=== PATIENT | female | born 1990 | race African-American/Black ===

== ENCOUNTER 2019-11-17 08:11 | Outpatient (CLI) | payer OTHER ==
--- NOTE | 2019-11-17 09:43 | Ultrasound Report ---
PROCEDURE: Abdomen Complete INDICATIONS: IRRITABLE BOWEL SYNDROME TECHNIQUE: Real-time scanning was performed of the abdominal and retroperitoneal organs, with image documentatio n. COMPARISON: None. FINDINGS: Liver: Liver is normal in size and homogeneous in echotexture. Gallbladder: Gallbladder wall thickness is within normal limits measuring 2 mm. No stones are identif ied. Biliary ducts: Intrahepatic bile ducts are non-dilated. Extrahepatic bile duct caliber measures 3 m m. Normal is 6-7 mm or less in diameter, or 10 mm or less post-cholecystectomy. Pancreas: Visualized portions of the pancreas are sonographically normal. Spleen: Spleen is normal in size and homogeneous in echotexture. Kidneys: Kidneys are normal in size and echotexture. Right kidney measures 10.5 cm long; left kidne y measures 10.2 cm long. No hydronephrosis. Bilateral nonobstructing calcifications are present with the largest on the left measuring 7 x 5 x 7 mm. Aorta: Visualized aorta is normal in caliber at less than 3 cm. Iliacs: Proximal common iliac arteries are normal in caliber at less than 2.5 cm. IVC: Intrahepatic inferior vena cava is patent. Miscellaneous: No free abdominal fluid. IMPRESSION: 1. Subcentimeter bilateral nonobstructing renal calculi. Otherwise, unremarkable exam. Reviewed by: Altagracia Cote MD on 11/17/2019 9:41 AM PDT Approved by: Altagracia Cote MD on 11/17/2019 9:41 AM PDT Station ID: [id number]
== END 2019-11-17 08:12 | disposition home or self-care (01) ==
LOC: DI 08:11
PROVIDERS: ATTEND Internal Medicine
DX: K58.8 Other irritable bowel syndrome (principal); N20.0 Calculus of kidney
CPT/HCPCS: 76700

== ENCOUNTER 2019-11-25 11:29 | Outpatient (CLI) | payer OTHER ==
--- NOTE | 2019-11-26 07:48 | Ultrasound Report ---
LIMITED ULTRASOUND OF RIGHT BREAST: 11/25/2019 CLINICAL: Palpable right breast lump. No prior exams were available for comparison. Real-time ultrasound of the right breast 10 o'clock region was performed. Shields scale images of the r eal-time examination were reviewed. No significant abnormalities were seen sonographically in the right breast. IMPRESSION: BENIGN There is no sonographic evidence of malignancy. There is no abnormality seen in the right breast to correspond with the area of clinical concern and palpable abnormality in the upper outer quadrant which likely represent normal fibroglandular tissue, however, recommend clinical followup for persistent or worsening symptoms and/or development of any clinically suspicious findings. Findings and recommendations were conveyed to the patient during today's visit. This exam was interpreted at Station ID: [id number]. Electronically Signed By: Rufus Calvillo M.D. aty/:11/25/2019 13:37:23 Ultrasound BI-RADS: 2 Benign BI-RADS CATEGORY: (2) - 2 Unspecified - other recall n/a LATERALITY: (B)
== END 2019-11-25 11:30 | disposition home or self-care (01) ==
LOC: DI 11:29
PROVIDERS: ATTEND Advanced Practice Midwife
DX: Z00.00 Encounter for general adult medical examination without abnormal findings (principal); N63.10 Unspecified lump in the right breast, unspecified quadrant; R21 Rash and other nonspecific skin eruption
CPT/HCPCS: 76642

== ENCOUNTER 2021-03-22 15:00 | Inpatient (IN) | payer OTHER ==
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
[2021-03-22 16:37] LABS: RUPTURE OF MEMBRANES PLUS POSITIVE (NEGATIVE)
[2021-03-22] MEDS ORDERED: LIDOCAINE-MPF 1% 30 ML VIAL ID PRN (17:10)
[2021-03-22] MEDS ORDERED: METOCLOPRAMIDE 10 MG/2 ML VIAL IVP PRN ×2 (17:10→19:43)
[2021-03-22] MEDS ORDERED: METHYLERGONOVINE 0.2 MG/ML VIAL IM PRN (17:10)
[2021-03-22] MEDS ORDERED: TRANEXAMIC ACID IN NACL 1,000 MG/100 ML BAG IV PRN (17:10)
[2021-03-22] MEDS ORDERED: LABETALOL 20 MG/4 ML SYRINGE IVP PRN (17:10)
[2021-03-22] MEDS ORDERED: OXYTOCIN 10 UNIT/ML VIAL IM PRN (17:10)
[2021-03-22] MEDS ORDERED: hydrALAZINE INJ 20 MG/ML VIAL IVP PRN (17:10)
[2021-03-22] MEDS ORDERED: SODIUM CHLORIDE FLUSH 0.9% 10 ML SYRINGE IVP PRN (17:10)
[2021-03-22] MEDS ORDERED: miSOPROStoL 200 MCG TABLET BC PRN (17:10)
[2021-03-22] MEDS ORDERED: CARBOPROST TROMETHAMINE 250 MCG/ML AMP IM PRN (17:10)
[2021-03-22] MEDS ORDERED: ONDANSETRON 4 MG/2 ML VIAL IVP PRN ×2 (17:10→19:43)
[2021-03-22] MEDS ORDERED: fentaNYL 100 MCG/2 ML VIAL IVP PRN (17:10)
[2021-03-22] MEDS ORDERED: OXYTOCIN/SODIUM CHLORIDE 500 ML IV PRN (17:10)
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
[2021-03-22 17:55] LABS: BASOPHILS % (AUTO) 0.3 %; EOSINOPHILS # (AUTO) 0.1 10^3/uL (0.0-0.7); EOSINOPHILS % (AUTO) 0.6 %; HCT - HEMATOCRIT 38.1 % (37.0-47.0); HGB - HEMOGLOBIN 12.6 g/dL (12.0-16.0); LYMPHOCYTES % (AUTO) 17.7 %; MEAN CORPUSCULAR HEMOGLOBIN 28.1 pg (27.0-31.0); MEAN CORPUSCULAR HGB CONC 33.1 g/dL (32.0-36.0); MEAN CORPUSCULAR VOLUME 84.9 fL (81.0-99.0); MEAN PLATELET VOLUME 11.3 fL (7.9-10.8); MONOCYTES # (AUTO) 0.9 10^3/uL (0.0-1.0); MONOCYTES % (AUTO) 7.5 %; NEUTROPHILS # (AUTO) 8.4 10^3/uL (1.5-6.6); NEUTROPHILS % (AUTO) 73.6 %; PLT - PLATELET COUNT 250 10^3/uL (130-450); RED BLOOD COUNT 4.49 10^6/uL (4.20-5.40); WHITE BLOOD COUNT 11.4 x10^3/uL (4.8-10.8)
[2021-03-22] MEDS: LACTATED RINGERS 1,000 ML IV SCH ×2 (18:40→20:43)
[2021-03-22] MEDS ORDERED: BUPIVACAINE 0.25% PF 10 ML VIAL ONE (18:59)
[2021-03-22] MEDS ORDERED: ROPIVACAINE 0.2% 200 MG/100 ML BAG EP ONE (18:59)
[2021-03-22] MEDS ORDERED: fentaNYL 100 MCG/2 ML VIAL ONE (18:59)
[2021-03-22] MEDS ORDERED: NALOXONE 0.4 MG/ML VIAL IVP PRN (19:43)
[2021-03-22] MEDS ORDERED: ROPIVACAINE 0.2% 200 MG/100 ML BAG EP PRN (19:43)
[2021-03-22] MEDS ORDERED: NALBUPHINE 10 MG/ML AMP IVP PRN (19:43)
[2021-03-22] MEDS ORDERED: ePHEDrine 50 MG/ML VIAL IVP PRN (19:43)
--- NOTE | 2021-03-22 19:45 | ANESTHESIA ---
Pre-Anesthesia VS, & Labs - Diagnosis active labor - Procedure labor epidural Vital Signs: Temp Pulse Resp BP Pulse Ox 36.8 C 89 16 107/66 100 03/22/21 17:30 03/22/21 17:30 03/22/21 17:30 03/22/21 17:30 03/22/21 16:23 Height: 5 ft Weight (kg): 68.946 kg Body Mass Index: 29.7 BMI Classification: Overweight - Is Patient ?: Yes - Lab Results Current Lab Results: Laboratory Tests 03/22/21 17:21: Blood Type A POSITIVE, Antibody Screen NEGATIVE 03/22/21 17:21: WBC 11.4 H, RBC 4.49, Hgb 12.6, Hct 38.1, MCV 84.9, MCH 28.1, MCHC 33.1, RDW 15.0, Plt Count 250, MPV 11.3 H, Neut # (Auto) 8.4 H, Lymph # (Auto) 2.0, [place] # (Auto) 0.9, Eos # (Auto) 0.1, Baso # (Auto) 0.0, Absolute Nucleated RBC 0.00, Nucleated RBC % 0.0 Lab results reviewed: Yes Fish Bones: 03/22/21 17:21 Home Medications and Allergies Active Medications Acetaminophen (Acetaminophen 325 Mg Tablet) 650 mg PO Q6H JAYA Carboprost Tromethamine (Carboprost Tromethamine 250 Mcg/Ml Amp) 250 mcg IM Q15M PRN PRN Reason: Step 4: Hemorrhage protocol Stop: 03/27/21 17:11 Fentanyl (Fentanyl 100 Mcg/2 Ml Vial) 50 mcg IVP Q1H PRN PRN Reason: PAIN Hydralazine HCl (Hydralazine Inj 20 Mg/Ml Vial) 10 mg IVP .ONCE PRN; Protocol PRN Reason: Step 9 of Labetalol protocol Stop: 03/27/21 17:14 Lactated Ringer's (Lr) 1,000 mls @ 150 mls/hr IV .Q6H40M JAYA Last Admin: 03/22/21 18:40 Dose: 500 mls/hr Documented by: Oxytocin/Sodium Chloride (Pitocin/Sodium Chloride) 500 mls @ 999 mls/hr IV PRN PRN; Protocol PRN Reason: POST- HEMORR PREVENTION Stop: 03/27/21 17:11 Tranexamic Acid (Tranexamic 1,000 Mg/100ml-Nacl) 1,000 mg in 100 mls @ 600 mls/hr IV .ONCE PRN PRN Reason: EBL >1200mL and within 3hr Stop: 03/27/21 17:11 Oxytocin/Sodium Chloride (Pitocin/Sodium Chloride) 500 mls @ 1 mls/hr IV TITR JAYA; Protocol Labetalol HCl (Labetalol 20 Mg/4 Ml Syringe) 20 - 80 mg IVP Q10M PRN; Protocol PRN Reason: SBP >160 or DBP >110 Lidocaine HCl (Lidocaine-Mpf 1% 30 Ml Vial) 30 ml ID .ONCE PRN PRN Reason: PERINEAL REPAIR Stop: 03/27/21 17:11 Methylergonovine Maleate (Methylergonovine 0.2 Mg/Ml Vial) 0.2 mg IM .ONCE PRN PRN Reason: Step 2: Hemorrhage protocol Stop: 03/27/21 17:11 Metoclopramide HCl (Metoclopramide 10 Mg/2 Ml Vial) 10 mg IVP Q6H PRN PRN Reason: Nausea / Vomiting Misoprostol (Misoprostol 200 Mcg Tablet) 800 mcg BC .ONCE PRN PRN Reason: Step 3: Hemorrhage protocol Stop: 03/27/21 17:11 Ondansetron HCl (Ondansetron 4 Mg/2 Ml Vial) 4 mg IVP Q4H PRN PRN Reason: Nausea / Vomiting Oxytocin (Oxytocin 10 Unit/Ml Vial) 10 unit IM .ONCE PRN PRN Reason: Step one: If no IV access Stop: 03/27/21 17:11 Sodium Chloride (Sodium Chloride Flush 0.9% 10 Ml Syringe) 10 ml IVP PRN PRN PRN Reason: NEEDED PER PROVIDER ORDERS Sodium Chloride (Sodium Chloride Flush 0.9% 10 Ml Syringe) 10 ml IVP 0100,0900,1700 [facility] Allergies/Adverse Reactions: Allergies Allergy/AdvReac Type Severity Reaction Status Date / Time No Known Drug Allergies Allergy Verified 03/22/21 16:06 Anes History & Medical History - Anesthetic History Anesthesia Complications: reports: No previous complications Family history of Anesthesia Complications: Denies Family history of Malignant Hyperthermia: Denies - Medical History Neuro: reports: Other (low back pain) Smoking Status: Never smoker - Obstetrical History : 1 Parity: 0 Events: reports: Gestational diabetes Complications: reports: None Exam General: Alert, Oriented x3, Cooperative, No acute distress Dental: WNL Mouth Openin Fingerbreadth Plan Anesthesia Type: Epidural Consent for Procedure(s) Verified and Reviewed: Yes Code Status: Attempt Resuscitation ASA classification: 2-Mild systemic disease Is this case an emergency?: No
[2021-03-22 20:16] LABS: MUDS CUTOFF CONCENTRATIONS CUTOFF CONC BELOW:
--- NOTE | 2021-03-22 20:20 | PROVIDER PROGRESS NOTE ---
Labor Progress Note - Uterine Monitoring Contraction Intensity: positive: Mild to moderate Uterine Resting Tone: positive: Soft - Monitoring Monitor Mode: positive: Spiral electrode Heart Rate Variability: positive: Moderate (6-25 bmp) Accelerations: positive: Present, 15x15 Strip Review: positive: Category I, Category II - Vaginal Exam Dilation (in cm): 4 Effacement (%): 80-90 Station: -3 (Patient had a variabile deceleration, then the fetus was off the monitor. Patient had a lito late after FSE placed. Moderate variabilityis present throughout the strip.) - Labor Progress Note Labor Progress Note/Additional Text: Patient uis very comfortable with epidural. heart tones came off external monitor and could not be heard for 30 seconds. Exam performed, 4cm/80-90/-3, forebag present. [place] utilized to rupture forebag. Clear fluid present. FSE placed. Bedside ultrasound performed. Vertex in the OP/OT position. Patient states she is tired and she is comfortable. Sanchez placed to drainage. Patient to rest and them begin Pitocin augmentation of labor. Continuous monitoring.
[2021-03-22 20:27] LABS: AMPHETAMINE SCREEN,URINE NEGATIVE (NEGATIVE); BARBITURATE SCREEN,UR NEGATIVE (NEGATIVE); BENZODIAZEPINES SCREEN, URINE NEGATIVE (NEGATIVE); COCAINE SCREEN URINE NEGATIVE (NEGATIVE); METHADONE SCREEN, URINE NEGATIVE (NEGATIVE); METHAMPHETAMINES SCREEN, URINE NEGATIVE (NEGATIVE); OPIATE SCREEN, URINE NEGATIVE (NEGATIVE); OXYCODONE SCREEN, URINE NEGATIVE (NEGATIVE); PROPOXYPHENE SCREEN, URINE NEGATIVE (NEGATIVE); THC CANNABINOID SCREEN, URINE NEGATIVE (NEGATIVE); TRICYCLIC ANTIDEPRESSANT,URINE NEGATIVE (NEGATIVE)
[2021-03-22] MEDS: OXYTOCIN/SODIUM CHLORIDE 500 ML IV SCH (21:25)
[2021-03-23] MEDS: LACTATED RINGERS 1,000 ML IV SCH ×3 (03:34→17:43)
[2021-03-23] MEDS: ACETAMINOPHEN 325 MG TABLET PO SCH ×6 (04:34→21:00)
[2021-03-23] MEDS ORDERED: BUPIVACAINE 0.25% PF 10 ML VIAL ONE (04:55)
[2021-03-23] MEDS ORDERED: fentaNYL 100 MCG/2 ML VIAL ONE (04:55)
[2021-03-23] MEDS: diphenhydrAMINE INJ 50 MG/ML VIAL IVP PRN ×2 (06:59→14:40)
--- NOTE | 2021-03-23 10:11 | PROVIDER PROGRESS NOTE ---
Labor Progress Note - Uterine Monitoring Contraction Frequency (min/apart): 3-5 minutes Contraction Intensity: positive: Moderate Uterine Resting Tone: positive: Soft - Monitoring Monitor Mode: positive: Spiral electrode Heart Rate Baseline: 140 Heart Rate Variability: positive: Moderate (6-25 bmp) Accelerations: positive: Present, 15x15 Decelerations: positive: Variable, Intermittent (<50% x20 min) Strip Review: positive: Category I (Occasionally has Category II strip, occasional minimal variability, mostly moderate variability. Accelerations are present. Occasional variable.) - Vaginal Exam Dilation (in cm): Copmplete Station: 2 (Patient has been pushing, somewhat ineffectively, for 3 hours,) - Labor Progress Note Labor Progress Note/Additional Text: Patient has been pushing mostly ineffectively for 3 hours. The first hour there was not directed pushing with RN. Patient has been complaining about pain in her shoulder and neck and this prevents her from maintaining effective pushing. Discussed with patient and the need for a brake. Consulted with Anesthesia about maintaining pain control but becoming more effective with pushing. Discussed giving her Fentanyl for her neck and shoulder pain. Patient can feel our fingers when we examine her and place them in the vagina. Exam: Head is 2+ station. Two fingers can be placed between the infants head and the pubic bone. There is a lot of room in the posterior vagina for the head. Pelvis appears adequate for delivery. Discussed utilizing the vacuum to assist in the delivery of the head. Explained that it can only be utilized with 4 contractions and it would be preferred if the head descends a little more. Take a break for an hour and attempt to get pain control of her neck and shoulders. Anesthesia consulted and is staying available to assist us.
--- NOTE | 2021-03-23 13:04 | DELIVERY NOTE ---
Delivery Note - Labor Labor: positive: Augmented by oxytocin - Delivery Method Delivery Method: positive: Vacuum assist - Presentation Presentation: positive: Vertex, VIBHA - right occiput anterior - Nuchal Cord Nuchal Cord: positive: None - Anesthetic Anesthetic Type: - Amniotic Fluid Description Amniotic Fluid Description: positive: Light meconium - Vacuum Use Indication for Vacuum Use: positive: Prolonged 2nd stage, Shortening of 2nd stage for maternal benefit Type of Vacuum Cup: positive: Cup: Mushroom Type Vacuum Extraction: positive: Successful - Episiotomy Type Episiotomy Type: positive: Midline - Laceration Laceration: positive: Vaginal - Suture Suture Type: positive: Vicryl Suture Size: positive: 2-0 - Delivery Outcome Delivery Outcome: positive: Livebirth - [place]: positive: Placed in direct skin contact with mother [place] sex: positive: Male - Cord Cord: positive: 3 vessels - Placenta Placenta: positive: Intact, Spontaneous - Estimated Blood Loss Estimated Blood Loss (in cc): 600 (Patient sustained vaginal, periurethral lacerations that bled significantly when vacuum was placed. 2-0 Vicryl in interrupted fashion utilized times 5 sutures to obtain hemostasis prior to attempting vacuum assisted vaginal delivery.) - Delivery Comments (Free Text/Narrative) Delivery Comments (Free Text/Narrative): 30 yo at 39 1/7 presented with "bloody show" and having irregular co ntractions. Patient had SROM test performed and while test was being performed, SROM was witnessed by FERNANDEZ Jin. Test was positive and patient was admitted at 3/80/-3 and solo every 4-6 minutes. 3 hours later RN attempted to check patient and patient could not tolerate exam. Epidural anesthesia was placed. Patient was then 4cn/90%/-3. There were 2 variables that occurred and forebag was present and AROM was performed of forebag. Clear fluid was present. Patient was started on Pitocin Augmentation of labor. Patient progressed to 8.5 cm and was -1 station. One and a half hours later she was writing in pain, complete and plus two. Anesthesia came and re-adjusted her epidural. Patient pushed for 3 hours and the head was 2+ to 3+, not , but very close. Patient was feeling a little pressure in the vagina, but washaving tremendous pain in her neck and shoulders and was not able to push effectively. It was decided to give her a break. Anesthesia recommended 50mcg of Fentanyl which was given. Patient had about an hour break. Dr. Rangel was present due to Meconium and plan to utilize vacuum with the delivery after the break. Patient had had been verbally consented about use of vacuum. They agreed to try it. Patient was placed at end of table and the bottom was removed. Kiwi vacuum was placed in vagina and it caused a superficial laceration to periurethral area. It caused significant bleeding and 2-0 Vicryl in interrupted fashion times 5 was placed to stop bleeding. Her tissue was edematous and easily lacerated. Patient sustained a left vaginal/introitus laceration just inside vulva prior to delivery. 2 interrupted 2-0 Vicryl sutures placed to obtain hemostais. Patient's bladder was drained of 75cc of dark urine. With the next contraction the vacuum was utilized. Progress occurred with each contraction. Vacuum was utilized with 5 contractions. 2 Pop-offs occurred. Patient pushed on her own for 2-3 contractions and the head was protruding from the introitus. Vacuum applied with minimal pressure ( in yellow) to assist with the last effort of delivery of head. A midline Episiotomy was performed prior to the last contraction and vacuum application. Head delivered in VIBHA position. Maternal forces delivered anterior shoulder under pubic bone. Remainder of infant delivered spontaneously. Living male with copious light meconium and small amount of terminal meconium and APGARS of 9/9/ Cord clamped times two and cut. Cord blood obtained. Pitocin started in IV. Placenta delivered spontaneously, Intact, FRANNY. Dr. Crockett came in room shortly after delivery. 2-0 Vicryl in 2 layer running fashion was utilized to repair episiotomy. Interrupted suture of 2-0 Vicryl times 4 was utilized to obtain good appro ximation and hemostais of vaginal mucosa and skin on perineum. Due to swelling in periurethral area a roman was placed to drainage. Lap, sponge, needle and instrument counts were correct. EBL is 600cc, most of which occurred prior to delivery with vaginal lacerations. Patient and are resting in stable condition.
[2021-03-23] MEDS: IBUPROFEN 600 MG TABLET PO SCH ×3 (13:20→19:50)
[2021-03-23] MEDS ORDERED: WITCH HAZEL/GLYCERIN 1 PAD TOP PRN (13:45)
[2021-03-23] MEDS ORDERED: diphenhydrAMINE 25 MG CAPSULE PO PRN (13:45)
[2021-03-23] MEDS ORDERED: HYDROCORTISONE 1% CREAM 28 GM TUBE PR PRN (13:45)
[2021-03-23] MEDS ORDERED: oxyCODONE 5 MG TABLET PO PRN (13:45)
[2021-03-23] MEDS: SODIUM CHLORIDE FLUSH 0.9% 10 ML SYRINGE IVP SCH ×3 (14:45→17:44)
[2021-03-23] MEDS: DOCUSATE SODIUM 100 MG CAPSULE PO SCH ×2 (17:38→21:01)
[2021-03-23] MEDS: OXYTOCIN/SODIUM CHLORIDE 500 ML IV SCH (17:53)
[2021-03-24] MEDS: IBUPROFEN 600 MG TABLET PO SCH ×3 (05:41→18:51)
[2021-03-24] MEDS: ACETAMINOPHEN 325 MG TABLET PO SCH ×3 (05:41→18:51)
[2021-03-24 07:37] LABS: HGB - HEMOGLOBIN 8.9 g/dL (12.0-16.0); RED CELL DISTRIBUTION WIDTH 15.4 % (12.0-15.0)
[2021-03-24 07:42] LABS: BASOPHILS % (AUTO) 0.6 %; HCT - HEMATOCRIT 26.8 % (37.0-47.0); LYMPHOCYTES % (AUTO) 17.7 %; MEAN CORPUSCULAR HEMOGLOBIN 28.7 pg (27.0-31.0); MEAN CORPUSCULAR HGB CONC 33.2 g/dL (32.0-36.0); MEAN CORPUSCULAR VOLUME 86.5 fL (81.0-99.0); MEAN PLATELET VOLUME 11.2 fL (7.9-10.8); MONOCYTES % (AUTO) 7.6 %; NEUTROPHILS % (AUTO) 72.7 %; PLT - PLATELET COUNT 179 10^3/uL (130-450); WHITE BLOOD COUNT 15.4 x10^3/uL (4.8-10.8)
[2021-03-24 07:44] LABS: ABNORMAL LYMPHS % (MANUAL) 0 %
[2021-03-24 08:18] LABS: BAND NEUTROPHILS % (MANUAL) 3 %; EOSINOPHILS # (MANUAL) 0.3 10^3/uL (0-0.7); LYMPHOCYTES # (MANUAL) 2.6 10^3/uL (1.5-3.5); LYMPHOCYTES % (MANUAL) 17 %; MONOCYTES # (MANUAL) 1.4 10^3/uL (0.0-1.0); NEUTROPHILS # (MANUAL) 11.1 10^3/uL (1.5-6.6)
[2021-03-24 08:19] LABS: DIFFERENTIAL COMMENT MANUAL DIFFERENTIAL; PLATELET ESTIMATE, MANUAL NORMAL (130-450,000) (NORMAL); PLATELET MORPHOLOGY NORMAL APPEARANCE (NORMAL); RBC MORPHOLOGY (MULTIPLE) NORMAL APPEARANCE (NORMAL); WBC MORPHOLOGY (MULTIPLE) 1+ TOXIC GRANULATION (NORMAL)
[2021-03-24] MEDS: DOCUSATE SODIUM 100 MG CAPSULE PO SCH (12:45)
--- NOTE | 2021-03-24 14:30 | PROVIDER PROGRESS NOTE ---
Subjective - Prog Note Date Prog Note Date: 03/24/21 Prog Note Time: 14:28 - Subjective Pt reports feeling: Improved Subjective: Patient is 30yo who is day 1 Vacuum assisted vaginal delivery. Patient is feeling really good today. Patient had roman stay in overnight due to swelling in her periurethral area. Roman has been removed. Patient states pain is well controlled. Patient is breast feeding. Patient has ambulated. O- VSS, afebrile. Objective - Vital Signs/Intake & Output Reviewed Vital Signs: Yes Intake & Output: Intake & Output 03/21/21 03/22/21 03/23/21 03/24/21 23:59 23:59 23:59 23:59 Intake Total 1700 2690.000 240 Output Total 475 385 620 Balance 1225 2305.000 -380 - Objective General Appearance: positive: No acute distress Respiratory: positive: Breath sounds nml. negative: Wheezes, Rales Cardiovascular: positive: Regular rate & rhythm, No murmur, No gallop Abdomen: positive: Nml bowel sounds, Other (Soft, non-tender to palpation. Uterus is firm and just below the umbilicus.). negative: Guarding, Rebound Extremities: positive: Non-tender, No pedal edema Neurologic/Psychiatric: positive: Mood/affect nml - Lab Results Fish Bones: 03/24/21 07:10 Other Labs: Lab Results x24hrs 03/24/21 03/24/21 Range/Units 07:10 07:10 WBC 15.4 H (4.8-10.8) x10^3/uL RBC 3.10 L (4.20-5.40) 10^6/uL Hgb 8.9 L (12.0-16.0) g/dL Hct 26.8 L (37.0-47.0) % MCV 86.5 (81.0-99.0) fL MCH 28.7 (27.0-31.0) pg MCHC 33.2 (32.0-36.0) g/dL RDW 15.4 H (12.0-15.0) % Plt Count 179 (130-450) 10^3/uL MPV 11.2 H (7.9-10.8) fL Neut # (Auto) Not Reportable Lymph # (Auto) Not Reportable [place] # (Auto) Not Reportable Eos # (Auto) Not Reportable Baso # (Auto) Not Reportable Absolute Nucleated RBC Not Reportable Total Counted 100 Band Neuts % (Manual) 3 (0 - 10) % Abnorm Lymph % (Manual) 0 % Nucleated RBC % Not Reportable Neutrophils # (Manual) 11.1 H (1.5-6.6) 10^3/uL Lymphocytes # (Manual) 2.6 (1.5-3.5) 10^3/uL Monocytes # (Manual) 1.4 H (0.0-1.0) 10^3/uL Eosinophils # (Manual) 0.3 (0-0.7) 10^3/uL Basophils # (Manual) 0.0 (0-0.1) 10^3/uL Differential Comment MANUAL DIFFERENTIAL WBC Morphology 1+ TOXIC GRANULATION (NORMAL) Platelet Estimate NORMAL (130-450,000) (NORMAL) Platelet Morphology NORMAL APPEARANCE (NORMAL) RBC Morph Micro Appear NORMAL APPEARANCE (NORMAL) Blood Type Recheck A POSITIVE - Other Results/Comments Other Results/Comments: A- day 1, doing well. S/P Vacuum assisted vaginal delivery. P- COntinue routine care. Remove Abdominal binder that patient brought from home and placed. Plan to discharge to home tomorrow.
[2021-03-24] MEDS: LACTATED RINGERS 1,000 ML IV SCH ×5 (16:58→17:00)
[2021-03-24] MEDS: SODIUM CHLORIDE FLUSH 0.9% 10 ML SYRINGE IVP SCH ×2 (16:59→17:00)
[2021-03-24] MEDS: OXYTOCIN/SODIUM CHLORIDE 500 ML IV SCH (16:59)
[2021-03-25] MEDS: DOCUSATE SODIUM 100 MG CAPSULE PO SCH ×2 (01:54→09:33)
[2021-03-25] MEDS: IBUPROFEN 600 MG TABLET PO SCH ×3 (01:54→09:33)
[2021-03-25] MEDS: ACETAMINOPHEN 325 MG TABLET PO SCH ×2 (01:56→09:33)
[2021-03-25 08:52] VITALS: BP 101/56
--- NOTE | 2021-03-25 09:57 | DISCHARGE SUMMARY ---
"Discharge Summary Admit Date: 03/22/21 Discharge Date: 03/25/21 Discharging Provider: Oziel Daugherty DO Condition at Discharge: Good Discharge Disposition: 01 Home, Self Care Discharge Facility Name: [facility] - DIAGNOSES Admission Diagnoses: IUP 39 2/7 , Spontaneous Rupture of Membranes Discharge Diagnoses with Status of Each Condition: A/P Vacuum assisted vaginal Delivery - HPI History of Present Illness: 30 yo at 39 2/7 weeks with SROM presented to Labor and Delivery because she could not get [place] to get to [facility]. Patient had good care at [facility] [employer]. - CONSULTS | PROCEDURES Procedures: Augmentation of labor, Epidural Anesthesia, Vacuum assisted vaginal delivery, Midline episiotomy with repair. - HOSPITAL COURSE Hospital Course: Patient was admitted with SROM on Monday afternoon. Patient had epidural anesthesia placed. Patient progressed, slowly to complete and 2+ station. Patient had a prolonged second stage of labor due to maternal efforts we inhibited by pain. Patient agreed to attempt Vacuum assisted vaginal delivery. Patient had a vacuum assisted vaginal delivery over Midline episiotomy. Living male with Apgars of 9/9. Sanchez placed immediately after delivery due to swelling. Patient has had routine course. Patient is breast feeding and going to be discharged today. - ALLERGIES Allergies/Adverse Reactions: Allergies Allergy/AdvReac Type Severity Reaction Status Date / Time No Known Drug Allergies Allergy Verified 03/22/21 16:06 - PHYSICAL EXAM AT DISCHARGE General Appearance: positive: No acute distress Respiratory: positive: Breath sounds nml. negative: Wheezes, Rales Cardiovascular: positive: Regular rate & rhythm, No murmur, No gallop Abdomen: positive: Non-tender, Nml bowel sounds, Other (Fundus is firm and below the umbilicus.) Extremities: positive: Nml appearance, No pedal edema. 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 - TIME SPENT Time Spent in Discharge (Minutes): 30"
--- NOTE | 2021-03-25 10:14 | Discharge Plan ---
Discharge Plan Problem Reviewed?: No Disposition: Home, Self Care Condition: Good Prescriptions: Ibuprofen [Motrin] 600 mg PO Q6H PRN 5 Days #40 tablet PRN Reason: Pain No Smoking: If you smoke, Please STOP! Call for help.
== END 2021-03-25 14:13 | disposition home or self-care (01) | DRG 807 ==
LOC: FBP 15:00 → WFO 15:00 → FBP 17:10
PROVIDERS: ADMIT Obstetrics & Gynecology; ATTEND Obstetrics & Gynecology
PROC: 0W8NXZZ Division of Female Perineum, External Approach (ICD-10-PCS; principal; 2021-03-23)
PROC: 10D07Z6 Extraction of Products of Conception, Vacuum, Via Natural or Artificial Opening (ICD-10-PCS; 2021-03-23)
PROC: 0UQMXZZ Repair Vulva, External Approach (ICD-10-PCS; 2021-03-23)
DX: O63.1 Prolonged second stage (of labor) (principal); Z37.0 Single live birth; O77.0 Labor and delivery complicated by meconium in amniotic fluid; Z3A.39 39 weeks gestation of pregnancy; O71.82 Other specified trauma to perineum and vulva; O24.419 Gestational diabetes mellitus in pregnancy, unspecified control
CPT/HCPCS: 36415; 80306; 84112; 85025; 86850; 86900; 86901; 99215; A9270; J1200; J7120